=== PATIENT | female | born 1940 | race Caucasian/White ===

== ENCOUNTER → 2016-05-17 | Day surgery (SDC) | payer MEDICARE ==
[2016-04-20 11:57] VITALS: BMI 29.3
--- NOTE | 2016-05-16 10:20 | SC.ANESEVA ---
Anesthesia Eval & Plan ([facility]) - Providers Stated Procedure: right eye cataract surgery Surgeon:: Li De La Torre - Medications/Allergies Allergies: Allergies No Known Allergies Allergy (Verified 04/05/14 09:31) Home Medications: Home Medication List Cholecalciferol (Vitamin D3) [Vitamin D3] 2,000 units PO DAILY 05/11/16 [History ] Lamotrigine 2 tabs PO DAILY 05/11/16 [History] Metoprolol Succinate/Hctz [Dutoprol 50-12.5 mg Tablet] 0.5 tab PO DAILY [History] Venlafaxine HCl ER [Effexor Xr] 150 mg PO DAILY 05/11/16 [History] Venlafaxine HCl [Venlafaxine HCl ER] 75 mg PO DAILY 05/11/16 [History] Current Medication List: Reviewed - Focused Physical Exam NPO since: Since after Midnight Mallampati: Class II Thyromental Distance: Greater than 3 Neck: Limited Range of Motion Dental: Normal - no significant findings Cardiovascular/Chest: Normal (RRR no mumurs or rubs.) Respiratory: Lungs clear. negative: Wheezing Any problems with anesthesia, including nausea and vomiting?: No Any relatives with a history of Malignant Hyperthermia?: No Prone to Motion Sickness: No Other: Diagnoses AGE-RELATED NUCLEAR CATARACT, RIGHT EYE (05/17/16) Problem List Problem Status Onset Acute bronchitis Acute Bronchitis, acute, with bronchospasm Acute Facial contusion Acute Allergies Allergy/AdvReac Type Severity Reaction Status Date / Time No Known Allergies Allergy Verified 04/05/14 09:31 Home Medications Medication Instructions Recorded Last Taken Type Aspirin [Chewable Aspirin] 81 mg PO DAILY 08/22/13 04/04/14 07:00 History Calcium Carb/Vitamin D3/Vit K1 1 each PO BID(TEZ) 08/22/13 04/04/14 19:00 History [Viactiv Soft Chew Tablet] Fenofibrate,Micronized 200 mg PO HS 08/22/13 04/04/14 19:00 History [Fenofibrate] Lamotrigine [Lamictal] 200 mg PO DAILY 08/22/13 04/04/14 07:00 History Levothyroxine [Synthroid, Levoxyl] 75 mcg PO DAILY 08/22/13 04/05/14 07:00 History Pantoprazole Sodium [Protonix] 40 mg PO DAILY 08/22/13 04/04/14 19:00 History Venlafaxine HCl [Effexor] 75 mg PO DAILY 02/03/14 04/04/14 19:00 History Cholecalciferol (Vitamin D3) 2,000 units PO DAILY 05/11/16 Unknown History [Vitamin D3] Lamotrigine 2 tabs PO DAILY 05/11/16 Unknown History Metoprolol Succinate/Hctz 0.5 tab PO DAILY 05/11/16 Unknown History [Dutoprol 50-12.5 mg Tablet] Venlafaxine HCl ER [Effexor Xr] 150 mg PO DAILY 05/11/16 Unknown History Venlafaxine HCl [Venlafaxine HCl 75 mg PO DAILY 05/11/16 Unknown History ER] Height and Weight Patient's height 5 ft Patient's weight 68.18 kg Weight (Calculated Kilograms) 68.180 BMI 29.3 - Anesthetic Plan Anesthesia Type: MAC ASA Class: 3 - Focused Review of Systems Cardiac History: Yes: Hx Hypertension, Hx Cardiac Disorders, Hx Abnormal Cholesterol/Hyperlipidemia HEENT: Yes: Cataracts, Hx Vision Problem (reading glasses) Gastrointestinal: Yes: Hx Gastroesophageal Reflux Disease, Hx Gastrointestinal Disorders, Hx Diverticulitis, Hx Colonoscopy Neurological/Musculoskeletal: No: Hx Neurological Disorders Endocrine: Yes: Hx Hypothyroidism Blood/Autoimmune: Yes: Hx Blood Transfusions Smoking Status: Never smoker Surgical History: Yes: T&A, Appendectomy, Cholecystectomy, Bladder Tact Other Surgical History: BLADDER TACT left knee arthroscopy
[~2016-05-17] MED LIST: BSS 500 ml-Vancomycin 10 mg-Phenylephrine 1 mg Irrigation IR ONE; CHONDROITIN SULFATE 0.5 ML/PFS INTRAOC ONE; DEXAMETHASONE 4 MG/ML VIAL IV PRN; DIAZEPAM 5 MG TAB PO PRN; FENTANYL 100 MCG/2 ML VIAL ONE; Hyaluronate Sodium (Provisc) 5.5 mg/0.55 ml syringe INTRAOC ONE; LABETALOL 20 MG/4 ML SYRINGE IV PRN; MIDAZOLAM 2 MG/2 ML VIAL ONE; ONDANSETRON HCL 4 MG/2 ML VIAL IV PRN; PHENYLEPHRINE 2.5% OPHTH SOLN 2 ML BOT OP EYE ONE; SCOPOLAMINE TRANSDERMAL PATCH TOP ONE; TETRACAINE 0.5% 2 ML OPHTH SOLN OP EYE ONE; TETRACAINE 0.5% 2 ML OPHTH SOLN OP EYE PRN; TETRACAINE 0.5% 4 ML OPHTH SOLN OP EYE ONE; TETRACAINE 0.5% 4 ML OPHTH SOLN OP EYE PRN; TROPICAMIDE 1% OPHTH SOLN 2 ML BOTTLE OP EYE ONE; Vancomycin 10 MG, Phenylephrine 1,000 MCG in Balanced Salt Solution 500 ML IO ONE; hydrALAZINE 20 MG/ML VIAL IV PRN; hydrALAZINE 20 MG/ML VIAL ONE
[2016-05-17 10:14] VITALS: TEMP 97.2
--- NOTE | 2016-05-17 10:21 | HIMOPRPT ---
DATE OF PROCEDURE: 05/17/16 PREOPERATIVE DIAGNOSIS: Cataract right eye. POSTOPERATIVE DIAGNOSIS: Cataract right eye. PROCEDURE: Cataract extraction by phacoemulsification of the right eye SURGEON: Li De La Torre MD. ANESTHESIA: IV Sedation/Topical. COMPLICATIONS: None. PRE-OPERATIVE EVALUATION: The patient has been examined and deemed medically stable for cataract extraction with no apparent need for inpatient observation; outpatient setting is appropriate. Patient appears to be oriented to time, place and person. PROCEDURE IN DETAIL: The correct eye confirmed by patient, doctor, staff and paperwork. The operative eye was then marked by the doctor in the preoperative area. Eye drops were instilled into the operative eye to dilate the pupil. The patient was transported to the operating room and was placed in the supine position. A time out was performed before the beginning of the procedure. The operative eye was prepped and draped in the usual sterile fashion for ophthalmic surgery, taking care to isolate the lashes from the surgical field. Topical anesthetic drops were instilled into the operative eye. A lid speculum was placed. Betadine 5% was instilled in the operative eye for antiseptic. Microscope was brought into place for use throughout the case. The eye was inspected. A paracentesis incision was created with a side port knife. The temporal limbal corneal incision was performed with a maren blade. Viscoelastic was injected into the anterior chamber. Capsule forceps were used to create a capsulorhexis. Hydrodissection was performed with BSS. The nucleus was removed by phacoemulsification. Phaco time is noted below. The remaining cortical material was removed by I&A. The capsular bag was noted to be intact and distended with viscoelastic. The Intraocular lens was placed into the intact bag and centered without difficulty. The remaining viscoelastic was removed by I&A. Betadine 5% drops were placed to inspect wound and for antisepsis. Inspection revealed watertight wounds. The lid speculum was removed. Postoperative medications were instilled into the eye and a shield secured over the operative eye. IOL Type [id number] IOL Power 21.5 CDE 6.20 Discharge Summary: There were no complications and the patient was taken to the postoperative area in good condition. Postoperative instructions and outpatient follow up time were given.
[2016-05-17 10:24] VITALS: BP 112/61; PULSE 71
--- NOTE | 2016-05-17 10:35 | SC.ANESPOS ---
Post-Anesthesia Note LOC: Fully Awake Post-Anesthesia Assessment: Awake, Returned to Baseline, Hemodynamically Stable , Pain Control Adequate Phase I & II Recovery Complete: Yes Apparent Anesthesia Complication: No : N - Vital Signs Blood Pressure: 112/61 Pulse: 71 Resp Rate: 16 O2 Sat: 97 Temp: 97.2 F
== END ==
LOC: CPSC 08:11
PROVIDERS: ATTEND Ophthalmology
PROC: 08RJ3JZ Replacement of Right Lens with Synthetic Substitute, Percutaneous Approach (ICD-10-PCS; principal; 2016-05-17 10:15)
DX: H25.11 Age-related nuclear cataract, right eye (principal); I10 Essential (primary) hypertension; E78.5 Hyperlipidemia, unspecified; K21.9 Gastro-esophageal reflux disease without esophagitis; E03.9 Hypothyroidism, unspecified; K58.9 Irritable bowel syndrome, unspecified; F31.9 Bipolar disorder, unspecified; M19.90 Unspecified osteoarthritis, unspecified site; Z79.899 Other long term (current) drug therapy
CPT/HCPCS: 66984; A9270; J0360; J2250; J3010; V2632; J3490